=== PATIENT | female | born 1960 | race Caucasian/White ===

== ENCOUNTER 2017-01-03 09:56 | Emergency (ER) | payer OTHER ==
[2017-01-03] MEDS ORDERED: AMOXIL PO ONE (10:48)
[2017-01-03] MEDS ORDERED: DECADRON IM ONE (10:48)
[2017-01-03] MEDS ORDERED: ZYRTEC PO ONE (10:49)
--- NOTE | 2017-01-03 10:54 | PROVIDER DOCUMENTATION ---
HPI-General Adult - General Source: patient - History of Present Illness -Gen Adult Nature of Presenting Problems: Pt is 56 y/o F presents to the ED with nasal congestion and cough. Pt denies F. Pt states symptoms have been present for one week. Pt denies smoking. Location of Pain/Injury: reports: none Pain Radiation: reports: no radiation Quality of Pain: reports: none Onset/Duration: reports: 1 week ago Timing: reports: still present Context/Activities at Onset: reports: light activity Modifying Factors: improves with: nothing Associated Symptoms: reports: cough, sinus congestion/drainage (congestion) Similar Symptoms Previously?: Yes Recently seen or treated by another doctor?: No <Tara Gay - Last Filed: 01/03/17 10:56> <Alexandria Rogers - Last Filed: 01/03/17 11:05> - General Chief Complaint: Sinus Pain Stated Complaint: COLD SYMPTOMS Time Seen by Provider: 01/03/17 10:44 Allergies/Adverse Reactions: Patient Allergies Allergy/AdvReac Type Severity Reaction Status Date / Time No Known Allergies Allergy Verified 01/03/17 10:10 Home Medications: Home Medication List Medication Instructions Recorded Confirmed Last Taken Type Amoxicillin 500 mg PO BID #14 tablet 01/03/17 Unknown Rx Cetirizine [Zyrtec] 10 mg PO DAILY #20 tablet 01/03/17 Unknown Rx Liraglutide [Victoza] 01/03/17 Unknown History Lisinopril 10 mg PO DAILY 01/03/17 01/03/17 Unknown History Methylprednisolone [Medrol Dosepak] 4 mg PO DIRECTED #1 package 01/03/17 Unknown Rx Phenylephrine HCl/Cod/Prometh 2 tsp PO Q6H PRN PRN #120 syrup 01/03/17 Unknown Rx [Phenergan Vc-Codeine Syrup] Sitagliptin Phos/Metformin HCl 01/03/17 Unknown History [Janumet 50-500 mg Tablet] Review of Systems - Adult - REVIEW OF SYSTEMS - ADULT Constitutional: reports: no symptoms reported Eyes: reports: no symptoms reported Ears, Nose, Mouth & Throat: reports: sinus problem (congestion). denies: ear pain, throat pain Cardiovascular: reports: no symptoms reported Respiratory: reports: cough. denies: shortness of breath, wheezing Gastrointestinal: reports: no symptoms reported Genitourinary: reports: no symptoms reported Musculoskeletal: reports: no symptoms reported Integumentary: reports: no symptoms reported Neurological: reports: no symptoms reported Psychiatric: reports: no symptoms reported Endocrine: reports: no symptoms reported Hematologic/Lymphatic: reports: no symptoms reported Allergic/Immunologic: reports: no symptoms reported All Other Systems: Reviewed and Negative <Tara Gay - Last Filed: 01/03/17 10:56> Past History - Adult - PAST MEDICAL HISTORY-ADULT Review of Records: reports: Nursing Assessment Review, Medications Reviewed, Social history reviewed & non-contributory. Major Childhood Illnesses: reports: denies history Cardiovascular: reports: HTN Respiratory: reports: denies history Gastrointestinal: reports: denies history Obstetrical/Gynecological: reports: denies history Genitourinary: reports: denies history Musculoskeletal: reports: denies history Neurological: reports: denies history Endocrine/Immune: reports: Diabetes Other Conditions: reports: denies history - PRIOR SURGERIES/PROCEDURES Surgical/Procedure History: reports: BTL - IMMUNIZATION STATUS Childhood Immunizations: See Nurse Assessment Flu Vaccine: See Nurse Assessment - FAMILY HISTORY Family History: reviewed, not pertinent - SOCIAL HISTORY Smoking: denies Substance Use: denies Living Situation: family <Tara Gay - Last Filed: 01/03/17 10:56> Physical Exam-General - PHYSICAL EXAM-ADULT Initial Vital Signs Reviewed: Yes - CONSTITUTIONAL General Appearance: appears well, alert, no apparent distress - EYES Eyes: PERRL/EOMI, pink conjunctivae, fundi clear, no AV nicking - HEAD, EARS, NOSE, MOUTH & THROAT HENMT: normocephalic/atraumatic, moist mucous membranes, normal ENT inspection, TMs normal, pharyngeal erythema - NECK Neck: non-tender, full range of motion, supple, normal inspection - RESPIRATORY Respiratory: chest non-tender, lungs clear, normal breath sounds, no pleuratic chest pain, no respiratory distress, no accessory muscle use - CARDIOVASCULAR Cardiovascular: normal peripheral pulses, regular rate, rhythm, no edema, no gallop, no JVD, no murmur - GASTROINTESTINAL (ABDOMEN) Abdominal Exam: normal bowel sounds, non tender, soft, no organomegaly, no pulsatile mass - LYMPHATIC Lymphatic: no adenopathy - MUSCULOSKELETAL Back Exam: normal inspection, no CVA tenderness, no vertebral tenderness Extremity: normal range of motion, non-tender, normal gait, normal inspection, no pedal edema, no calf tenderness, normal capillary refill - SKIN Integumentary: normal color, normal turgor, warm/dry - NEUROLOGIC Neurologic: grossly normal - PSYCHIATRIC Psych/Mental Status: normal mood/affect, oriented x 3 <Tara Gay - Last Filed: 01/03/17 10:56> Progress - PLAN OF CARE/RESULTS Progress/Plan/Lab Results: Orders Category Date Time Status Amoxicillin [Amoxil] Med 01/03/17 10:48 Discontinued 500 mg PO NOW ONE Cetirizine [Zyrtec] Med 01/03/17 10:49 Discontinued 10 mg PO NOW ONE Dexamethasone [Decadron] Med 01/03/17 10:48 Discontinued 10 mg IM NOW ONE Vital Signs - 24 hr 01/03/17 10:07 Temperature 98 F Pulse Rate 90 Respiratory 18 Rate Blood Pressure 163/90 O2 Sat by Pulse 98 Oximetry <Tara Gay - Last Filed: 01/03/17 10:56> - PLAN OF CARE/RESULTS Progress/Plan/Lab Results: Discussed results and plan of care with patient. Patient agrees with plan and verbalizes understanding. Vital Signs Temp Pulse Resp BP Pulse Ox 01/03/17 10:07 98 F 90 18 163/90 98 No Known Allergies Allergy (Verified 01/03/17 10:10) Liraglutide [Victoza] 01/03/17 Lisinopril 10 mg PO DAILY 01/03/17 Sitagliptin Phos/Metformin HCl [Janumet 50-500 mg Tablet] 01/03/17 Orders Category Date Time Status Amoxicillin [Amoxil] Med 01/03/17 10:48 Discontinued 500 mg PO NOW ONE Cetirizine [Zyrtec] Med 01/03/17 10:49 Discontinued 10 mg PO NOW ONE Dexamethasone [Decadron] Med 01/03/17 10:48 Discontinued 10 mg IM NOW ONE <Alexandria Rogers - Last Filed: 01/03/17 11:05> Departure <Tara Gay - Last Filed: 01/03/17 10:56> - Departure Time of Disposition Order: 11:03 Certified Medical Emergency: Emergent <Alexandria Rogers - Last Filed: 01/03/17 11:05> - Departure DIAGNOSIS: Cough Sinusitis Qualifiers: Sinusitis location: frontal Chronicity: acute Recurrence: not specified as recurrent Qualified Code(s): J01.10 - Acute frontal sinusitis, unspecified Disposition: HOME 01 Condition: Stable Additional Instructions: Follow up with primary care physician Take medications as directed Return to ED for any concerns or worsening of symptoms ED Follow Up Instructions: You have been treated by a care provider in the Emergency Department. These instructions are being provided to you so you can have an understanding of how to care for yourself upon discharge. Upon discharge from the Emergency Department, you are responsible for making arrangements for follow-up care by a physician of your choice. Take all prescribed medications as directed. Return to the Emergency Department immediately for any new or worsening symptoms. You may call the Physician Referral phone number at [phone] to obtain a list of Physicians who are taking new patients. Prescriptions: Amoxicillin 500 mg PO BID #14 tablet Methylprednisolone [Medrol Dosepak] 4 mg PO DIRECTED #1 package Phenylephrine HCl/Cod/Prometh [Phenergan Vc-Codeine Syrup] 2 tsp PO Q6H PRN PRN #120 syrup PRN Reason: Cough Cetirizine [Zyrtec] 10 mg PO DAILY #20 tablet Attestation - Scribe Verification/Attestation Scribe:: Tara Gay Acting as Scribe for:: Alexandria Rogers Scribe documention review:: This chart was documented by a scribe and accurately reflects the service the provider performed and the decisions made by the provider. <Tara Gay - Last Filed: 01/03/17 10:56> - Physician/ YASMINE Attestation Patient care was provided by Advanced Practice Provider:: Yes Advanced Practice Provider:: Alexandria Rogers Advanced Practice Provider documentation review:: The Mid-level provider documentation, treatment plan and medical decision making was reviewed by the physician who agrees with all treatment and medical decision making by the [facility]. <Alexandria Rogers - Last Filed: 01/03/17 11:05> Physician Attestation
[2017-01-03 11:25] VITALS: BP 161/89
== END 2017-01-03 11:21 | disposition home or self-care (01) ==
LOC: P.ED 09:56
DX: J01.10 Acute frontal sinusitis, unspecified (principal); R05 Cough; R09.81 Nasal congestion; I10 Essential (primary) hypertension; E11.9 Type 2 diabetes mellitus without complications; Z79.899 Other long term (current) drug therapy
CPT/HCPCS: 96372